=== PATIENT | male | born 1970 | race Hispanic/Latino ===

== ENCOUNTER 2020-01-01 13:05 | Outpatient (CLI) | payer BC ==
--- NOTE | 2020-01-01 13:45 | CT ---
Exam: Sinus CT without contrast HISTORY: Many months of chronic sinusitis. FINDINGS: Visualized brain parenchyma is grossly unremarkable Bilateral ocular lenses are appropriately located. Both globes are intact. Retrobulbar fat is preserv ed. Symmetric attenuation the optic nerves and ocular rectus muscles Visualized aerodigestive tract is patent. Limited evaluation of the oral cavity due to dental amalgam artifact. The fatty raphae of the tongue cannot be assessed Coronal images demonstrate patent bilateral ostiomeatal complexes. Midline, intact nasal septum Osseous margins of the sinuses and sinuses are maintained. Visualized maxilla and mandible are intact. Adequate aeration of the frontal sinuses, ethmoid air cells, sphenoid sinuses and maxillary sinuses. No erosive or destructive changes of the sinus margins. No hypertrophy. Visualized mastoid air cells are adequately aerated IMPRESSION: 1. No significant mucosal thickening of the paranasal sinuses.
== END 2020-01-01 13:06 | disposition home or self-care (01) ==
LOC: BICCT 13:05
PROVIDERS: ATTEND Allergy & Immunology
DX: J32.9 Chronic sinusitis, unspecified (principal)